=== PATIENT | male | born 1995 | race Caucasian/White ===

== ENCOUNTER 2017-11-11 07:59 | Emergency (ER) | payer BC ==
[~2017-11-11] VITALS: Ht 185.4 cm; Wt 77.9 kg
[~2017-11-11 07:59] MED LIST: ULTRAM50 MG PO; ZOFRAN4 MG PO
[2017-11-11 08:25] LABS: HEMATOCRIT 41.1 % (38.0-50.0); HEMOGLOBIN 14.1 G/DL (12.5-16.6); MCH 29.6 PG (29.0-34.0); MCHC 34.3 G/DL (30.0-36.0); MCV 86.3 FL (86-99); PLATELET COUNT 184 K/uL (156-360); RBC DIS.WIDTH-CV 11.8 % (11.8-14.6); RBC DIS.WIDTH-SD 37.4 % (39-53); RED BLOOD COUNT 4.76 M/uL (4.00-5.50); WHITE BLOOD COUNT 8.4 K/uL (4.1-10.2)
[2017-11-11 08:34] LABS: CHLORIDE 105 mEq/L (99-109); POTASSIUM 3.8 mEq/L (3.7-5.4); SODIUM 141 mEq/L (136-147)
[2017-11-11 08:36] LABS: GLUCOSE 93 mg/dL (70-99)
[2017-11-11 08:39] LABS: GFR ESTIMATE (CALCULATED) > 59 mL/min/ (58.99-99999)
[2017-11-11 08:40] LABS: UREA NITROGEN (BUN) 9 mg/dL (9-23)
[2017-11-11 09:30] LABS: APPEARANCE CLEAR ((CLEAR)); BILIRUBIN NEGATIVE; BLOOD NEGATIVE; COLOR STRAW ((YELLOW)); GLUCOSE (STRIP) NEGATIVE; KETONES NEGATIVE; LEUKOCYTES NEGATIVE; NITRITE NEGATIVE; PROTEIN (STRIP) NEGATIVE; SPECIFIC GRAVITY 1.011 (1.000-1.030); UROBILINOGEN 0.2 MG/DL (0.2-1.0)
[2017-11-11 11:06] LABS: ALBUMIN 4.4 g/dL (3.2-4.8)
[2017-11-11 11:09] LABS: TOTAL PROTEIN 6.7 g/dL (6.4-8.3)
[2017-11-11 11:11] LABS: TOTAL BILIRUBIN 0.4 mg/dL (0.0-1.0)
[2017-11-11 11:12] LABS: ALKALINE PHOSPHATASE 59 IU/L (3-129)
[2017-11-11 11:14] LABS: AST (GOT) 17 IU/L (2-34); DIRECT BILIRUBIN 0.2 mg/dL (0.0-0.3)
[2017-11-11 11:15] LABS: ALT (GPT) 18 IU/L (3-49); LIPASE 13 U/L (1.0-51.0)
[2017-11-11] MEDS ORDERED: FLAGYL500 MG PO (13:44)
[2017-11-11] MEDS ORDERED: BENTYL10 MG PO (13:44)
[2017-11-11] MEDS ORDERED: CIPRO500 MG PO (13:44)
[2017-11-11 14:29] VITALS: BP 121/64
== END 2017-11-11 14:30 | disposition home or self-care (01) ==
LOC: EME 07:59
DX: K52.9 Noninfective gastroenteritis and colitis, unspecified (principal)
CPT/HCPCS: 74177; 80048; 80076; 81003; 83690; 85027; 86850; 86900; 86901; 99281; 99285; J7030